=== PATIENT | female | born 1965 | race American Indian/Alaskan Native ===

== ENCOUNTER 2016-10-19 09:55 | Outpatient (CLI) | payer OTHER ==
--- NOTE | 2016-10-20 12:08 | Mammography Report ---
Screening mammogram: Routine views compared to her prior exams in 2016. The patient has a heterogeneously dense fibroglandular pattern. Mild focal asymmetry is noted in the superior left breast unchanged from prior study. An area of increased density in the inferior lateral breast on the prior study is less dense on the current exam. Prior ultrasound showed left breast cysts. The breast pattern bilaterally is otherwise unremarkable and unchanged. CAD used. Impression: Benign pattern with no new findings. Recommendation: Annual mammogram followup. BI-RADS CATEGORY: 2 = Benign ACR BI-RADS MAMMOGRAPHIC CODES: 0 = Needs additional imaging evaluation; 1 = Negative; 2 = Benign; 3 = Probably benign; 4 = Suspicious; 5 = Malignant; 6 = Known biopsy-proven malignancy COMMENT: 1. Dense breast tissue, i.e., adenosis, fibrocystic changes, etc., may obscure an underlying neoplasm. 2. Approximately 10% of cancers are not detected with mammography. 3. A negative mammography report should not delay biopsy if a clinically suspicious mass is present.
== END 2016-10-19 09:56 | disposition home or self-care (01) ==
LOC: MAMMO 09:55
PROVIDERS: ATTEND General Practice
DX: Z12.31 Encounter for screening mammogram for malignant neoplasm of breast (principal)
CPT/HCPCS: 77067; G0202

== ENCOUNTER 2017-01-31 09:25 | Outpatient (CLI) | payer OTHER ==
--- NOTE | 2017-01-31 15:57 | Ultrasound Report ---
Ultrasound of the right axilla. History: Lump and swelling. Findings: Correlation is made with the patient's recent bilateral mammogram performed on October 19, 2016. There is a somewhat lobulated complex mass in the right axilla measuring 2.5 x 2.0 x 1.6 cm. There is an echogenic hilum. The mass is well-circumscribed. Impression: Enlarged right axillary lymph node, nonspecific.
== END 2017-01-31 09:26 | disposition home or self-care (01) ==
LOC: US 09:25
PROVIDERS: ATTEND Hospitalist
DX: M79.89 Other specified soft tissue disorders (principal); R59.0 Localized enlarged lymph nodes

== ENCOUNTER 2017-04-24 06:55 | Day surgery (SDC) | payer OTHER ==
[2017-04-24 07:41] LABS: Basophils % (Auto) 0.5 % (0.0-1.8); Eosinophils % (Auto) 1.8 % (0.0-4.3); Hematocrit 38.2 % (30.3-42.9); Hemoglobin 12.5 gm/dl (10.1-14.3); Mean Corpuscular HGB Conc 33 % (30-34); Mean Corpuscular Hemoglobin 31 pg (28-32); Mean Corpuscular Volume 94 fl (79-97); Platelet Count 207 K/mm3 (140-440); Red Blood Count 4.07 M/mm3 (3.65-5.03); Red Cell Distribution Width 13.7 % (13.2-15.2); White Blood Count 5.1 K/mm3 (4.5-11.0)
[2017-04-24 07:51] LABS: INR 0.99 (0.87-1.13)
[2017-04-24 07:52] LABS: Partial Thromboplastin Time 30.7 Sec. (24.2-36.6)
[2017-04-24 08:09] LABS: Anion Gap 14 mmol/L; BUN/Creatinine Ratio 15; Blood Urea Nitrogen 12 mg/dL (7-17); Calcium 9.1 mg/dL (8.4-10.2); Carbon Dioxide 32 mmol/L (22-30); Chloride 103.4 mmol/L (98-107); Glucose 99 mg/dL (65-100); Potassium 4.3 mmol/L (3.6-5.0); Sodium 145 mmol/L (137-145)
[2017-04-24] MEDS ORDERED: SUBLIMAZE IV ONE (09:30)
[2017-04-24] MEDS ORDERED: VERSED IV ONE (09:30)
--- NOTE | 2017-04-24 10:31 | Short Stay Summary ---
Short Stay Documentation Date of service: 04/24/17 - History Principal diagnosis: R axillary mass - Allergies and Medications Current Medications: Allergies pineapple Allergy (Verified 04/24/17 07:23) Swelling Home Medications Medication Instructions Recorded Confirmed Last Taken Type Ibuprofen [Advil 100 MG tab] 200 mg PO Q6H PRN 04/24/17 04/24/17 04/20/17 History Lisinopril/Hydrochlorothiazide 1 each PO QDAY 04/24/17 04/24/17 04/21/17 History [Zestoretic 10-12.5 mg Tablet] - Physical exam General appearance: no acute distress - Brief post op/procedure progress note Date of procedure: 04/24/17 Pre-op diagnosis: Axillary mass Post-op diagnosis: same Procedure: Bx axillary mass Anesthesia: local Surgeon: MG CHACON Estimated blood loss: none Specimen disposition: to lab Condition: stable - Disposition Condition at discharge: Good Disposition: [id number] TO HOME OR SELFCARE Short Stay Discharge Plan Follow up with: NATIVIDAD BUSBY MD [Primary Care Provider] - 7 Days
--- NOTE | 2017-04-24 10:42 | Cat Scan Report ---
CT guided biopsy of right axillary mass. Procedure: The patient's skin surface overlying the right axilla was prepped and draped. Using CT guidance, a 17-gauge sheath needle was advanced into the mass in the right axilla. He passes were made using an 18-gauge biopsy gun. Adequate tissue cores were obtained. Initial touch prep slides demonstrated malignant cells, and the procedure was terminated. Intravenous conscious sedation was used. Intraservice time is 15 minutes. Independent cardiorespiratory monitoring was performed by the outpatient procedure nurse for 15 minutes, supervised by me. The patient tolerated the procedure well clinically and was sent to the outpatient procedure unit for short-term observation in satisfactory condition.
[2017-04-24 11:24] VITALS: BP 161/87
== END 2017-04-24 11:15 | disposition home or self-care (01) ==
LOC: CATHLABREC 06:55 → EDSTATUS 07:30 → CATHLABREC 11:15
PROVIDERS: ATTEND Hospitalist
DX: C96.9 Malignant neoplasm of lymphoid, hematopoietic and related tissue, unspecified (principal); Z79.01 Long term (current) use of anticoagulants; Z91.018 Allergy to other foods
CPT/HCPCS: 36415; 38505; 77012; 80048; 85025; 85610; 85730; 88172; 88173; 88305; 88341; 88342; 88361; 99152; J2250; J3010; 88333